=== PATIENT | male | born 1950 | race Caucasian/White ===

== ENCOUNTER 2022-02-11 10:00 | Inpatient (IN) ==
--- NOTE | 2022-01-16 16:16 | PAT Medication Instructions ---
Medication Instructions Date of Service January 16, 2022 Home Medications albuterol sulfate 90 mcg/actuation aerosol inhaler (ProAir HFA) 1 inh INHALATION QID PRN amlodipine 10 mg-benazepril 20 mg capsule (Lotrel) 1 cap PO QAM dutasteride 0.5 mg capsule (Avodart) 0.5 mg PO QAM hydrochlorothiazide 25 mg tablet 25 mg PO QAM loratadine 10 mg tablet 10 mg PO QAM omeprazole 40 mg capsule,delayed release 40 mg PO QAM rosuvastatin 40 mg tablet 40 mg PO QAM DO NOT take the morning of surgery hydrochlorothiazide 25 mg tablet 25 mg PO QAM loratadine 10 mg tablet 10 mg PO QAM Take morning of surgery With a small sip of water, OTHERWISE NOTHING TO EAT OR DRINK AFTER MIDNIGHT: albuterol sulfate 90 mcg/actuation aerosol inhaler (ProAir HFA) 1 inh INHALATION QID PRN (use if needed; please bring rescue inhaler with you to hospital day of surgery if possible) amlodipine 10 mg-benazepril 20 mg capsule (Lotrel) 1 cap PO QAM dutasteride 0.5 mg capsule (Avodart) 0.5 mg PO QAM omeprazole 40 mg capsule,delayed release 40 mg PO QAM rosuvastatin 40 mg tablet 40 mg PO QAM Take evening before surgery albuterol sulfate 90 mcg/actuation aerosol inhaler (ProAir HFA) 1 inh INHALATION QID PRN (if needed) Other Notes If you have any questions please call us at [phone] or [phone] or [phone] or [phone]
--- NOTE | 2022-01-21 13:32 | Anesthesiology Consultation ---
Date of Service January 21, 2022 Assessment & Plan (1) Encounter for pre-operative examination: - COVID screening: Per assessment on 01/21: Patient vaccinated. Travel screen negative, no known COVID-19 positive contacts or current COVID-19 related sympt oms. Surgeon arranging preop COVID testing. Awaiting results. - Vascular office visit (01/15/22): "RLE PAD with bilateral multifactorial claudication. No rest pain or ulcerations. 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 Lumbar spine disease per MRI, being managed by Dr. Whelan at [facility]... The patient was counseled regarding the pathophysiology and natural history of peripheral vascular disease, as well as the interventional and noninterventional therapeutic options. NIKHIL today demonstrating stable moderate RLE PAD. Clinic presentation suggesting predominate neurogenic component of symptoms. Recommend medical management and routine surveillance.. No contraindication to proceed with back surgery from a Vascular Surgery prospective. 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 Medication instructions provided according to the PAT guidelines. History Surgery Operation Date: 02/11/22 10:45 Proposed Procedures p L2-S1 Decompression Fusion, Spinal Cord Monitoring - Allen Whelan DO Height/Weight Height: 5 ft 11 in Weight: 96.4 kg Allergies Allergy/AdvReac Type Severity Reaction Status Date / Time oxycodone AdvReac Intermediate Vomiting Verified 01/16/22 10:52 Medications Home Medications Medication Instructions Recorded Confirmed Last Taken albuterol sulfate 90 mcg/actuation 1 inh INHALATION QID PRN 01/16/22 01/16/22 Unknown aerosol inhaler (ProAir HFA) amlodipine 10 mg-benazepril 20 mg 1 cap PO QAM 01/16/22 01/16/22 Unknown capsule (Lotrel) dutasteride 0.5 mg capsule 0.5 mg PO QAM 01/16/22 01/16/22 Unknown (Avodart) hydrochlorothiazide 25 mg tablet 25 mg PO QAM 01/16/22 01/16/22 Unknown loratadine 10 mg tablet 10 mg PO QAM 01/16/22 01/16/22 Unknown omeprazole 40 mg capsule,delayed 40 mg PO QAM 01/16/22 01/16/22 Unknown release rosuvastatin 40 mg tablet 40 mg PO QAM 01/16/22 01/16/22 Unknown Past Medical History Medical History BPH (benign prostatic hyperplasia) Cancer of right cornea Remote hx "many years ago" > treated with chemotherapy Carotid artery stenosis <50% in 2018 imaging per vascular office visit note Chronic back pain Chronic obstructive pulmonary disease stable Degenerative disc disease GERD (gastroesophageal reflux disease) controlled Hyperlipidemia Hypertension Osteoarthritis Peripheral artery disease Following with [facility] vascular Exercise / Class Metabolic Activity III < 4 Walking/Shop/Light housework (one FS (no CP, + SOB)) Past Family History Family History Other No family history of adverse response to anesthesia Past Surgical History Surgical History H/O arthroscopy of shoulder right H/O eye surgery right eye r/t cornea cancer History of cataract surgery bilateral History of cholecystectomy History of colonoscopy History of cystoscopy Past Anesthesia History No Family Hx of Anesthesia Complications and Other (Patient states he had to have preop nebulizer treatment prior to cholecystectomy, no similar need for other surgeries) History of PONV No Hx of PONV and No Hx of Motion Sickness Social History Smoking Status: Former smoker tobacco type: cigarettes Do You Dip or Chew Tobacco: No Smoking End Date: Quit 16 years ago Hx Alcohol Use: Yes Alcohol type: beer and wine alcohol intake frequency: 3 or more drinks per day (5-6 glasses wine/day (typically 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 Physical Exam Vital Signs VITALS BP 175/67 P 88 TEMP 98.4 SP02 97%RA RESP 18 PHYSICAL Full cervical extension range of motion. Full TMJ range of motion. TMD 3 finger breaths Mallampati Score 3 Dentition: intact, upper front caps Lungs: clear throughout to auscultation Cardiac: regular rate and rhythm, no murmurs noted Spine: normal Carotid arteries: negative bruit Extremities: no edema Lab Results Anesthesia Preop Results Results Anesthesia Widget: WBC 10.27 K/uL (4.8-10.8) 01/21/22 Hgb 14.6 g/dL (14.0-18.0) 01/21/22 Hct 41.9 % (42-52) L 01/21/22 Plt 195 K/uL (130-400) 01/21/22 Na 141 mmol/L (136-145) 01/21/22 K 3.6 mmol/L (3.5-5.1) 01/21/22 Cl 103 mmol/L (98-107) 01/21/22 CO2 30 mmol/L (21-32) 01/21/22 BUN 14 mg/dl (6-23) 01/21/22 Creat 0.88 mg/dl (0.6-1.4) 01/21/22 Glucose Level 127 mg/dl (70-99(Fasting)) H 01/21/22 PT 10.9 Seconds (9.0-12.0) 01/21/22 PTT 23.9 Seconds (21.0-31.0) 01/21/22 INR 1.0 (0.9-1.1) 01/21/22 Urine Color Yellow 01/21/22 Urine Appearance Clear (Clear) 01/21/22 Urine pH 5.5 (4.5-7.5) 01/21/22 Urine Specific Rayle 1.018 (1.000-1.030) 01/21/22 Urine Protein Negative (Negative) 01/21/22 Urine Glucose (UA) Negative (Negative) 01/21/22 Urine Ketones Negative (Negative) 01/21/22 Urine Blood Negative (Negative) 01/21/22 Urine Nitrite Negative (Negative) 01/21/22 Urine Bilirubin Negative (Negative) 01/21/22 Urine Urobilinogen Negative (Negative) 01/21/22 Urine Leukocyte Esterase Negative (Negative) 01/21/22 Blood Type AB Positive 01/21/22 Antibody Screen NEGATIVE 01/21/22 Testing Electrocardiogram Date: 01/21/22 NSR at 90bpm. LAD. NS IVCD. Compared to 12/3/10, questionable change in QRS duration per warp spooler review/comparison. Chest X-Ray Date: 01/21/22 Findings: + NAD Other Testing CTA Abd Aorta/fem runoff (09/09/21): Diffusely diseased aorta without aneurysm, dissection or flow-limiting stenosis. Right side: Calcified lesion at the very distal external iliac artery contributes to short-segment stenosis, approximately 50%. Calcified disease continues into the common femoral artery where [place] reef like calcification results in near total occlusion. Profunda is patent. SFA is patent. Calcified lesion contributes to short-segment stenosis of approximately 50% in the mid P2 segment and the distal P3 segment. No popliteal aneurysm. Scattered atherosclerotic disease throughout the tibials which are grossly patent. Left side: Bulky calcified lesion in the proximal common iliac artery contributes to short-segment stenosis, approximately 40-50%. Calcified lesion in the common femoral artery contributes to short-segment stenosis, approximately 60%. Profunda is patent. No significant fem-pop disease. No popliteal aneurysm. Scattered calcified disease throughout the tibials which are grossly patent.
[~2022-02-11 10:00] MED LIST: LR 15ML/HR IV SCH; ceFAZolin 2000MG 2,000 MG/15 ML SYR IV SCH
[2022-02-11] MEDS: ACETAMINOPHEN 500 MG TAB PO SCH (10:56)
[2022-02-11] MEDS: GABAPENTIN 300 MG CAP PO SCH (10:56)
[2022-02-11] MEDS: CeleBREX 200 MG CAP PO SCH (10:56)
[2022-02-11] MEDS ORDERED: ONDANSETRON INJ 2 MG/ML 2 ML VIAL IV PRN ×2 (13:25→20:08)
[2022-02-11] MEDS ORDERED: ePHEDrine sulfate 50 MG/ML AMP IV PRN (13:25)
[2022-02-11] MEDS ORDERED: ATROPINE SULFATE 0.1 MG/ML 10ML SYR IV PRN (13:25)
[2022-02-11] MEDS ORDERED: ONDANSETRON INJ 2 MG/ML 2 ML VIAL ONE (13:45)
[2022-02-11] MEDS ORDERED: PROPOFOL IV EMULSION 10 MG/ML 20 ML VIAL IV ONE ×2 (13:45→17:05)
[2022-02-11] MEDS ORDERED: LIDOCAINE 2% 2 ML VIAL/AMP(20MG/ML) INFIL ONE (13:45)
[2022-02-11] MEDS ORDERED: ROCURONIUM BROMIDE 10 MG/ML 5 ML VIAL IV ONE (13:45)
[2022-02-11] MEDS ORDERED: DEXAMETHASONE SOD INJ 4 MG/ML VIAL ONE (13:45)
[2022-02-11] MEDS ORDERED: fentaNYL citrate 100 MCG/2 ML VIAL ONE ×2 (13:49→17:18)
[2022-02-11] MEDS ORDERED: GLYCOPYRROLATE 0.2 MG/ML VIAL ONE ×2 (13:50→17:27)
--- NOTE | 2022-02-11 14:16 | History & Physical Bridge Note ---
Date of Service February 11, 2022 History & Physical Bridge Note I have examined the patient, reviewed the History & Physical and in the interval since the performance of the History & Physical I have noted the following changes of clinical significance: no changes noted
--- NOTE | 2022-02-11 14:17 | History & Physical Report ---
Date of Service February 11, 2022 Assessment & Plan (1) Neurogenic claudication due to lumbar spinal stenosis: Plan: L2-S1 decompression fusion History of Present Illness Chief Complaint: Back and leg pain Primary Care Provider: Andrei Petersen This is a 71-year-old male presents with chronic persistent back and leg pain. Failing since course of nonoperative care is here for surgical invention. Allergies Allergy/AdvReac Type Severity Reaction Status Date / Time oxycodone AdvReac Intermediate Vomiting Verified 02/11/22 10:34 Home Medications Medication Instructions Recorded Confirmed Type albuterol sulfate 90 mcg/actuation 1 inh INHALATION QID PRN 01/16/22 02/11/22 History aerosol inhaler (ProAir HFA) amlodipine 10 mg-benazepril 20 mg 1 cap PO QAM 01/16/22 02/11/22 History capsule (Lotrel) dutasteride 0.5 mg capsule 0.5 mg PO QAM 01/16/22 02/11/22 History (Avodart) hydrochlorothiazide 25 mg tablet 25 mg PO QAM 01/16/22 02/11/22 History loratadine 10 mg tablet 10 mg PO QAM 01/16/22 02/11/22 History omeprazole 40 mg capsule,delayed 40 mg PO QAM 01/16/22 02/11/22 History release rosuvastatin 40 mg tablet 40 mg PO QAM 01/16/22 02/11/22 History Past Med/Surg History Medical History BPH (benign prostatic hyperplasia) Cancer of right cornea Remote hx "many years ago" > treated with chemotherapy Carotid artery stenosis <50% in 2018 imaging per vascular office visit note Chronic back pain Chronic obstructive pulmonary disease stable Degenerative disc disease GERD (gastroesophageal reflux disease) controlled Hyperlipidemia Hypertension Osteoarthritis Peripheral artery disease Following with [facility] vascular Surgical History H/O arthroscopy of shoulder right H/O eye surgery right eye r/t cornea cancer History of cataract surgery bilateral History of cholecystectomy History of colonoscopy History of cystoscopy Family History Other No family history of adverse response to anesthesia Social History Smoking Status: Former smoker Smoking End Date: Quit 16 years ago; Second Hand Exposure: No; Do You Dip or Chew Tobacco: No; Tobacco Cessation Education Requested by Patient: No Hx Alcohol Use: Yes Alcohol type: beer and wine Hx Substance Use: No Preferred Language: Israeli Communication Ability: Effective Jr. Systems Administrator Required: No Beliefs That Will Affect Care: None Current Living Situation: Spouse Other Information That Helps Us Care for You: No Feels Safe at Home: Yes Safety Concerns: Feels Safe At This Time Assistive Devices: Glasses Physical Exam Physical Exam: Patient is alert and oriented Heart regular rate and rhythm Lungs clear Results & Data ([facility]) Vital Signs (Past 12 Hours) Vital Signs Temp Pulse Resp BP Pulse Ox 02/11/22 10:37 37.3 C 89 18 154/81 H 97
[2022-02-11] MEDS ORDERED: ceFAZolin 330 MG/ML 1 GM VIAL ONE (14:33)
[2022-02-11] MEDS ORDERED: BUPIVACAINE/EPINEPHRINE 0.25% 1:200,000 30 ML VIAL ONE (14:33)
[2022-02-11] MEDS ORDERED: REMIFENTANIL HCL 1 MG VIAL ONE (14:41)
[2022-02-11] MEDS ORDERED: FLOSEAL HEMOSTATIC MATRIX 10ML TOP ONE (15:58)
[2022-02-11] MEDS ORDERED: NEOSTIGMINE METHYLSULFATE 1 MG/ML 10ML VIAL ONE (17:27)
--- NOTE | 2022-02-11 17:55 | Operative Report ---
Post Operative Report Pre & Post Diagnosis Operation Date: 02/11/22 11:35 Pre-Op Diagnosis: Neurogenic claudication due to spinal stenosis Post-Op Diagnosis: Neurogenic claudication due to spinal stenosis I identified the patient and participated in the time-out.: Yes Procedure Operation Date: 02/11/22 11:35 Actual Procedures #1 lumbar decompression with bilateral medial facetectomies and foraminotomies L2-L3, L3-L4, L4-5 and L5-S1. #2 posterior spinal fusion L2-S1. #3 placement posterior segmental instrumentation L2-S1. #4 interbody fusion L4-L5 L5-S1. #5 placement of Spira cage 13 x 26 mm at L4-L5 and 11 x 26 mm at L5-S1. #6 placement locally harvested morselized autograft in the posterior gutters. #7 placement of infuse collagen sponge, master graft in the posterior lateral gutters and I factor interbody space. Surgeon Allen Whelan, Refrigerated Company Driver Christen Frias Estimated Blood Loss 400 Findings Consistent with Post-Op Diagnosis Specimens None Indications This is a 71-year-old male presents with above-mentioned diagnosis after failing since course of nonoperative care is here for surgical invention. Description of Procedure Patient was met with identified informed consent obtained. Patient was then taken to the operative suite underwent a patient placed in a prone position the Othello table top Reggie frame. All bony prominences well-padded eyes inspected to ensure no external pressure placed upon the. This point lumbar spine was prepped and draped no sterile fashion. Sharp dissection with the assistance of Bovie cautery was performed down to and exposing the lamina and transverse processes of L2 L3-L4-L5 and sacral ala bilaterally. From a caudal cephalad fashion complete laminectomy L5 L4 L3 L2 was performed including bilateral medial facetectomies and foraminotomies addressing severe spinal stenosis. Pedicle screws were then placed in L2 L3-L4-L5 and S1 levels bilaterally with assistance of fluoroscopy and proper sized joanna placed. By way of entrance foraminal approach on the right complete discectomy of L5-S1 was performed endplates curetted to subcortical bleeding bone and a 11 x 26 mm spiral cage filled with I factor tapped in position. Then proceeded to L4-L5 and again by way the transforaminal approach on the right pleat discectomy performed endplates curetted to subcortical any bone and a 13 x 26 mm spiral cage filled I factor tapped in position. The rods were then locked into final position bilaterally. The transverse processes of L2-L3 L4-5 and sacral ala burred to subcortically bone. Infuse collagen sponge master graft and local autograft was placed in the posterior gutters. 15 round GRACE drain inserted. The incision was then closed with 1 Vicryl the fascia 2-0 Vicryl subcutaneously and 4 Monocryl for final skin closure. Steri-Strip sterile dressings placed. Patient progressed to PACU stable condition. Please note spinal cord monitoring was utilized at the procedure no changes noted. Lastly Christen Frias was present out the entire surgery involved the patient positioning complex portions of the surg heath and final skin closure. I attest to the content of the Intraoperative Record and any orders documented therein. Any exceptions are noted below.
--- NOTE | 2022-02-11 18:04 | Fluoroscopy Report ---
FL lumbar spine 2-3V CLINICAL HISTORY: L2-S1 DF TECHNIQUE: 4 views were obtained with the C-arm in the OR with the above procedure. Total fluoroscopy time was 27.2 seconds. Total skin dose was 28.4 mGy. Comparison: None available at the time of this dictation. FINDINGS/IMPRESSION: Intraoperative images were obtained of L2-S1 discectomy and fusion. Please correlate with intraoperative fluoroscopy and operative report. ACT 112: Negative or not required by law. Electronically signed by: Silvestre Cornejo M.D. 02/11/2022 6:03 PM
[2022-02-11] MEDS: fentaNYL citrate 100 MCG/2 ML VIAL IV PRN ×4 (18:30→18:58)
[2022-02-11] MEDS: HYDROmorphone INJ 2 MG/ML SYR/VIAL IV PRN ×4 (19:11→19:32)
--- NOTE | 2022-02-11 19:14 | Anesthesiology Progress Note ---
Date of Service February 11, 2022 Anesthesia Post Procedure Vital Signs Vital Signs: Temp Pulse Pulse Resp BP Pulse Ox 02/11/22 19:05 58 L 11 L 147/66 H 95 02/11/22 18:55 57 L 14 136/65 94 02/11/22 18:45 64 16 147/70 H 96 02/11/22 18:35 61 18 137/68 93 02/11/22 18:25 54 L 14 131/96 98 02/11/22 18:15 36 C L 59 L 17 105/63 98 02/11/22 10:37 37.3 C 89 18 154/81 H 97 Pain Intensity Back: Pain Intensity: 7 Transfer of Care Handoff Completed per policy Notes Mental Status: alert / awake / arousable and participated in evaluation Patient Amnestic to Procedure: Yes Nausea / Vomiting: adequately controlled Pain: adequately controlled Airway Patency, RR, SpO2: stable & adequate BP & HR: stable & adequate Hydration State: stable & adequate Anesthetic Complications: no major complications apparent and Pt Satisfied with anesthetic care
[2022-02-11] MEDS ORDERED: SOD PHOSPHATE/SOD BIPHOSPHATE ENEMA 132 ML BTL PR PRN (20:08)
[2022-02-11] MEDS ORDERED: NALOXONE HCL 0.4 MG/1 ML VIAL/CARP IV PRN (20:08)
[2022-02-11] MEDS ORDERED: LORazepam 2 MG/1 ML VIAL IV PRN (20:08)
[2022-02-11] MEDS ORDERED: DO NOT ADMINISTER PNEUMOCOCCAL VACCINE PRN (20:08)
[2022-02-11] MEDS ORDERED: ACETAMINOPHEN 500 MG TAB PO PRN (20:08)
[2022-02-11] MEDS ORDERED: DO NOT ADMINISTER FLU VACCINE PRN (20:08)
[2022-02-11] MEDS ORDERED: ACETAMINOPHEN 1,000 MG/100 ML VIAL IV PRN (20:08)
[2022-02-11] MEDS ORDERED: hydrOXYzine HCl 25 MG TAB PO PRN (20:08)
[2022-02-11] MEDS ORDERED: diphenhydrAMINE Capsule 25 MG CAP PO PRN (20:08)
[2022-02-11] MEDS ORDERED: HYDROmorphone INJ 0.5 MG/0.5 ML SYR IV PRN (20:08)
[2022-02-11] MEDS ORDERED: METOCLOPRAMIDE HCL INJ 5 MG/ML 2 ML VIAL IV PRN (20:08)
[2022-02-11] MEDS ORDERED: LORazepam 0.5 MG TAB PO PRN (20:08)
[2022-02-11] MEDS ORDERED: FAMOTIDINE 20 MG TAB PO PRN (20:08)
[2022-02-11] MEDS ORDERED: bisacodyL 10 MG SUPP PR PRN (20:08)
[2022-02-11] MEDS ORDERED: ALUMINUM/MAGNESIUM SUSP 30 ML UDC PO PRN (20:08)
[2022-02-11] MEDS ORDERED: MAGNESIUM HYDROXIDE SUSP 30 ML UDC PO PRN (20:08)
[2022-02-11] MEDS ORDERED: HYDROmorphone INJ 1 MG/ML SYRINGE IV PRN (20:08)
[2022-02-11] MEDS ORDERED: PROMETHAZINE HCL 12.5 MG in SODIUM CHLORIDE 0.9% 50 ML IV PRN (20:08)
[2022-02-11] MEDS ORDERED: ALBUTEROL HFA 8 GM INHALER INH PRN (20:55)
--- NOTE | 2022-02-11 21:24 | Hospitalist Consultation ---
Date of Consultation February 11, 2022 Assessment & Plan (1) Neurogenic claudication due to lumbar spinal stenosis: Final Assessment and Recommendations as follows : LSS status post surgery Clinically well COPD, not in acute exacerbation, transient postop hypoxemia secondary to s edation Rule out fluid overload hypertension, BP on the lower side hyperlipidemia, on statin Rx hx PVD, patient follows with [facility] vascular surgeon Hyperglycemia on preop labs December 2021 likely secondary to prediabetes, outpatient hemoglobin A1c of 5.9 from January 2021 past tobacco/alcohol abuse Continue amlodipine, hold enalapril and HCTZ for now given borderline BP Resume if BP improved and a.m. chemistries within normal limits Hemoglobin A1c with a.m. blood work DVT prophylaxis. SCDs as per postop orders Thank you very much for this consultation. Dr. Covarrubias will follow patient's progress. Text document was generated using [employer] voice recognition software. It may contain grammatical or spelling errors. Kindly contact undersigned for clarification of any documentation item in question. History of Present Illness Reason for Consultation: Medical management Requesting Physician: Dr. Whelan Attending Physician: Allen Whelan DO History of Present Illness PCP : Dr. Andrei Petersen History obtained from patient and records. Medical history significant for COPD, hypertension, hyperlipidemia, PVD, past tobacco/alcohol abuse. Patient underwent elective lumbar decompression surgery today for L SS. Currently pain is tolerable. O2 sats transiently in the 70s postop during sleep as per RN. Patient denies chest pain, SOB, cough symptoms. Medical History as above Surgical History : Shoulder surgery, cholecystectomy, cystoscopy, right hamstring repair Family History : Heart disease Personal/Social history : Past tobacco/alcohol abuse, daily alcohol intake although patient denies abuse currently, retired heavy machinery equipment technician Allergies Allergy/AdvReac Type Severity Reaction Status Date / Time oxycodone AdvReac Intermediate Vomiting Verified 02/11/22 10:34 Home Medications Medication Instructions Recorded Confirmed Type albuterol sulfate 90 mcg/actuation 1 inh INHALATION QID PRN 01/16/22 02/11/22 History aerosol inhaler (ProAir HFA) amlodipine 10 mg-benazepril 20 mg 1 cap PO QAM 01/16/22 02/11/22 History capsule (Lotrel) dutasteride 0.5 mg capsule 0.5 mg PO QAM 01/16/22 02/11/22 History (Avodart) hydrochlorothiazide 25 mg tablet 25 mg PO QAM 01/16/22 02/11/22 History loratadine 10 mg tablet 10 mg PO QAM 01/16/22 02/11/22 History omeprazole 40 mg capsule,delayed 40 mg PO QAM 01/16/22 02/11/22 History release rosuvastatin 40 mg tablet 40 mg PO QAM 01/16/22 02/11/22 History Patient History Medical History BPH (benign prostatic hyperplasia) Cancer of right cornea Remote hx "many years ago" > treated with chemotherapy Carotid artery stenosis <50% in 2018 imaging per vascular office visit note Chronic back pain Chronic obstructive pulmonary disease stable Degenerative disc disease GERD (gastroesophageal reflux disease) controlled Hyperlipidemia Hypertension Osteoarthritis Peripheral artery disease Following with [facility] vascular Surgical History H/O arthroscopy of shoulder right H/O eye surgery right eye r/t cornea cancer History of cataract surgery bilateral History of cholecystectomy History of colonoscopy History of cystoscopy Family History Other No family history of adverse response to anesthesia Social History Smoking Status: Former smoker Smoking End Date: Quit 16 years ago; Second Hand Exposure: No; Do You Dip or Chew Tobacco: No; Tobacco Cessation Education Requested by Patient: No Hx Alcohol Use: Yes Alcohol type: beer and wine Hx Substance Use: No Preferred Language: Hungarian Communication Ability: Effective Records Analyst Required: No Beliefs That Will Affect Care: None Current Living Situation: Spouse Other Information That Helps Us Care for You: No Feels Safe at Home: Yes Safety Concerns: Feels Safe At This Time Assistive Devices: Glasses Review of Systems Review of Systems: As per HPI, all other systems reviewed and negative Physical Exam Physical Exam: GENERAL: Comfortable, pleasant, no respiratory distress SKIN: Normal color, warm HEENT: [place] palpebral conjunctivae, no ptosis, dry buccal mucosa, nasal cannula in place NECK : Supple, no tenderness CHEST : Decreased breath sounds, no tenderness HEART : RRR, no obvious murmurs ABDOMEN: Some distention, nontender EXTREMITIES : Minimal LE swelling, no LE tenderness, no other conspicuous deformities noted NEUROLOGIC : Coherent, no facial asymmetry, gait and stance not assessed Results & Data Results & Data ([facility]) Vital Signs (Past 12 Hours) Vital Signs Temp Pulse Pulse Resp BP Pulse Ox 02/11/22 20:52 36.6 C 77 18 106/61 92 02/11/22 20:20 36.6 C 75 18 124/63 92 02/11/22 19:35 56 L 9 L 134/60 95 02/11/22 19:25 36.2 C L 68 17 135/62 93 02/11/22 19:15 65 16 139/63 92 02/11/22 19:05 58 L 11 L 147/66 H 95 02/11/22 18:55 57 L 14 136/65 94 02/11/22 18:45 64 16 147/70 H 96 02/11/22 18:35 61 18 137/68 93 02/11/22 18:25 54 L 14 131/96 98 02/11/22 18:15 36 C L 59 L 17 105/63 98 02/11/22 10:37 37.3 C 89 18 154/81 H 97 Laboratory Results Lab Results 02/11/22 02/11/22 Range/Units 10:28 Unknown SARS-CoV-2, RNA, NAAT NEGATIVE (NEGATIVE) Blood Type AB Positive Antibody Screen NEGATIVE Crossmatch See Detail Laboratory Results SARS-CoV-2, RNA, NAAT NEGATIVE (NEGATIVE) 02/11/22 Unknown Blood Type AB Positive 02/11/22 10:28 Antibody Screen NEGATIVE 02/11/22 10:28 Crossmatch See Detail 02/11/22 10:28 Impressions Lumbar Spine X-Ray 02/11/22 11:35 FL lumbar spine 2-3V CLINICAL HISTORY: L2-S1 DF TECHNIQUE: 4 views were obtained with the C-arm in the OR with the above procedure. Total fluoroscopy time was 27.2 seconds. Total skin dose was 28.4 mGy. Comparison: None available at the time of this dictation. FINDINGS/IMPRESSION: Intraoperative images were obtained of L2-S1 discectomy and fusion. Please correlate with intraoperative fluoroscopy and operative report. ACT 112: Negative or not required by law. Electronically signed by: Silvestre Cornejo M.D. 02/11/2022 6:03 PM Diagnostic Findings CXR as per my interpretation cardiomegaly, no congestion/infiltrate
[2022-02-11] MEDS: HYDROCODONE/ACETAMOPHEN 5/325MG TAB PO PRN (22:07)
[2022-02-11] MEDS: DOCUSATE SODIUM/SENNA 50/8.6MG TAB PO SCH (22:32)
[2022-02-11] MEDS: LACTATED RINGER'S 1,000 ML IV SCH (22:38)
[2022-02-12] MEDS: ceFAZolin 2000MG 2,000 MG/15 ML SYR IV SCH ×2 (00:08→08:53)
[2022-02-12] MEDS: HYDROCODONE/ACETAMOPHEN 5/325MG TAB PO PRN ×2 (04:19→09:17)
[2022-02-12] MEDS: POLYETHYLENE (MIRALAX) 17 GM PACK PO SCH ×4 (06:19→22:36)
[2022-02-12] MEDS: LACTATED RINGER'S 1,000 ML IV SCH (06:20)
[2022-02-12] MEDS: ACETAMINOPHEN 500 MG TAB PO SCH (06:35)
[2022-02-12] MEDS: GABAPENTIN 300 MG CAP PO SCH (06:36)
[2022-02-12] MEDS: CeleBREX 200 MG CAP PO SCH (06:36)
--- NOTE | 2022-02-12 08:25 | XRay Report ---
XR chest 1V portable CLINICAL HISTORY: transient hypoxemia COMPARISON STUDY: Chest radiograph January 21, 2022. FINDINGS: Lung volumes are normal. Lungs are clear. There is no pneumothorax or pleural effusion. Car diac size is at the upper limits of normal. Mediastinal contours are normal. There is no evidence for pulmonary edema. IMPRESSION: No acute cardiopulmonary findings. ACT 112: Negative or not required by law. Electronically signed by: Freeman De La Garza M.D. 02/12/2022 8:23 AM
[2022-02-12 08:42] LABS: Hematocrit (blood only) 32.2 % (42-52); Hemoglobin 10.6 g/dL (14.0-18.0); Immature Granulocytes # (auto) 0.01 K/uL (0.00-0.02); Immature Granulocytes % (auto) 0.1 %; Lymphocytes # (auto) 0.86 K/uL (1.2-3.4); Lymphocytes % (auto) 6.9 %; Mean Corpuscular Hemoglobin 31.1 pg (25-34); Mean Corpuscular Hgb Conc 32.9 g/dL (32-36); Mean Corpuscular Volume 94.4 fL (80-100); Mean Platelet Volume 11.5 fL (7.4-10.4); Monocytes # (auto) 0.89 K/uL (0.11-0.59); Monocytes % (auto) 7.2 %; Neutrophils # (auto) 10.68 K/uL (1.4-6.5); Neutrophils % (auto) 85.8 %; Platelet Count 161 K/uL (130-400); RDW Coefficient of Variation 14.5 % (11.5-14.5); RDW Standard Deviation 49.6 fL (36.4-46.3); Red Blood Count 3.41 M/uL (4.7-6.1); White Blood Count 12.44 K/uL (4.8-10.8)
[2022-02-12] MEDS: LORATADINE 10 MG TAB PO SCH (08:54)
[2022-02-12] MEDS: PANTOprazole 40 MG TAB PO SCH (08:54)
[2022-02-12] MEDS: amLODIPine BESYLATE 5 MG TAB PO SCH (08:55)
[2022-02-12] MEDS: ROSUVASTATIN CALCIUM 20 MG TAB PO SCH (08:55)
[2022-02-12] MEDS: dexAMETHasone 6 MG in SYRINGE 0 ML IV SCH (08:56)
[2022-02-12] MEDS ORDERED: ENALAPRIL MALEATE 10 MG TAB PO SCH (09:00)
[2022-02-12] MEDS ORDERED: hydroCHLOROthiazide 25 MG TAB PO SCH (09:00)
--- NOTE | 2022-02-12 09:00 | Orthopedic Progress Note ---
Date of Service February 12, 2022 Assessment & Plan (1) Neurogenic claudication due to lumbar spinal stenosis: Plan: Patient will start physical therapy today. DC Jiménez after physical therapy. DVT prophylaxis is in the form of teds and SCDs. Maintain GRACE drain. Continue with pain control. Admission and Anticipated Discharge Date Admission Date: February 11, 2022 Subjective Patient is postoperative day 1 L2-S1 decompression instrumented fusion. He had an an uneventful evening. No complaints. Lower extremity symptoms greatly improved. H&H is morning are 10.6 and 32.2 respectively. GRACE drain output last shift is 400 cc. Review of Systems Review of Systems: All systems reviewed & are unremarkable except as noted in HPI & below Physical Exam Physical Exam: Patient sitting up and eating breakfast No acute distress Alert and oriented x3 Strength is intact bilateral lower extremities Calves are soft nontender bilaterally Results & Data ([facility]) Vital Signs (Past 12 Hours) Vital Signs Temp Pulse Resp BP Pulse Ox 02/12/22 08:52 84 122/67 94 02/12/22 07:37 36.8 C 85 16 116/62 96 02/12/22 04:08 36.7 C 81 18 139/78 97 02/11/22 22:50 36.6 C 78 18 110/68 97 02/11/22 21:57 36.9 C 78 17 118/66 94
[2022-02-12 09:03] LABS: BUN Creatinine Ratio 15.4 (10-20); Calcium 7.9 mg/dl (8.5-10.1); Creatinine Clr Calc Pharmacy 84.9 ml/min; Est GFR (African American) 96.6 ml/min; Est GFR (Non-African American) 83.3 ml/min; Potassium 4.1 mmol/L (3.5-5.1)
[2022-02-12] MEDS: ONDANSETRON 4 MG OD TAB PO PRN (09:56)
[2022-02-12 10:12] LABS: Estimated Average Glucose 117 mg/dl; Hemoglobin A1C 5.7 % (4.5-5.6)
[2022-02-12] MEDS: traMADol HCL 50 MG TABLET PO PRN ×2 (18:36→23:18)
[2022-02-12] MEDS: DOCUSATE SODIUM/SENNA 50/8.6MG TAB PO SCH (20:19)
--- NOTE | 2022-02-12 23:57 | Hospitalist Progress Note ---
Date of Service February 12, 2022 Assessment & Plan (1) Neurogenic claudication due to lumbar spinal stenosis: Plan: #1 lumbar decompression with bilateral medial facetectomies and foraminotomies L2-L3, L3-L4, L4-5 and L5-S1. #2 posterior spinal fusion L2-S1. #3 placement posterior segmental instrumentation L2-S1. #4 interbody fusion L4-L5 L5-S1. #5 placement of Spira cage 13 x 26 mm at L4-L5 and 11 x 26 mm at L5-S1. #6 placement locally harvested morselized autograft in the posterior gutters. #7 placement of infuse collagen sponge, master graft in the posterior lateral gutters and I factor interbody space performed by Dr. Whelan No post op complication Continue pain control Incentive spirometry Continue PT/OT eval Fall precaution Will monitor H/H Acute blood loss anemia Hgb 10.6 today, preop Hgb 14.6 Mostly due to recent ortho procedure Continue monitor H/H HTN HCTZ and Benazapril on hold Continue amlodipine LSS status post surgery Clinically well Hx PVD Stable Follow up with outpatient vascular surgeon DVT px as per ortho Code status Full code Admission and Anticipated Discharge Date Admission Date: February 11, 2022 Subjective Pt was seen and examined for postop follow up Sitting in chair with no acute distress Pt said that pain is tolerable He walked around with therapy Denies any chest pain, palpitation, dizziness and SOB Review of Systems Review of Systems: All systems reviewed & are unremarkable except as noted in Subjective Physical Exam Physical Exam: General- No acute distress Head- atraumatic Eyes- PERRL, EOMI, ENT- oropharynx clear Neck- supple, no JVD Lungs- clear to auscultation Heart- regular rhythm; no murmur Abdomen- normal bowel sounds, soft, nontender Extremities- no calf tenderness Neuro- alert, oriented x 3; PERRL, EOMI; no facial palsy; no dysarthria Skin- warm & dry Results & Data Results & Data ([facility]) Vital Signs (Past 12 Hours) Vital Signs Temp Pulse Resp BP Pulse Ox 02/12/22 15:14 36.8 C 83 16 123/70 96
[2022-02-13] MEDS: POLYETHYLENE (MIRALAX) 17 GM PACK PO SCH ×5 (06:11→23:48)
[2022-02-13] MEDS: traMADol HCL 50 MG TABLET PO PRN ×2 (06:14→23:53)
[2022-02-13] MEDS: dexAMETHasone 6 MG in SYRINGE 0 ML IV SCH (09:34)
[2022-02-13] MEDS: LORATADINE 10 MG TAB PO SCH (09:35)
[2022-02-13] MEDS: PANTOprazole 40 MG TAB PO SCH (09:35)
[2022-02-13] MEDS: DUTASTERIDE 0.5 MG CAPSULE PO SCH (09:35)
[2022-02-13] MEDS: ROSUVASTATIN CALCIUM 20 MG TAB PO SCH (09:36)
[2022-02-13] MEDS: amLODIPine BESYLATE 5 MG TAB PO SCH (09:38)
[2022-02-13 10:43] LABS: Hematocrit (blood only) 29.4 % (42-52); Hemoglobin 9.7 g/dL (14.0-18.0); Mean Corpuscular Hemoglobin 31.2 pg (25-34); Mean Corpuscular Volume 94.5 fL (80-100); Mean Platelet Volume 11.3 fL (7.4-10.4); Platelet Count 121 K/uL (130-400); RDW Coefficient of Variation 14.6 % (11.5-14.5); RDW Standard Deviation 50.3 fL (36.4-46.3); Red Blood Count 3.11 M/uL (4.7-6.1); White Blood Count 10.76 K/uL (4.8-10.8)
--- NOTE | 2022-02-13 12:13 | Orthopedic Progress Note ---
Date of Service February 13, 2022 Assessment & Plan (1) Neurogenic claudication due to lumbar spinal stenosis: Plan: At this time we will continue physical therapy monitor his GRACE output consider discharge home this weekend. Admission and Anticipated Discharge Date Admission Date: February 11, 2022 Subjective Patient's back pain is controlled leg symptoms improved Physical Exam Physical Exam: On exam he is comfortable he has good strength testing. Results & Data ([facility]) Vital Signs (Past 12 Hours) Vital Signs Temp Pulse Pulse Resp BP Pulse Ox 02/13/22 09:37 152/71 H 02/13/22 07:35 36.4 C L 81 20 157/80 H 02/13/22 00:19 36.6 C 79 18 135/69 96
[2022-02-13] MEDS: ONDANSETRON 4 MG OD TAB PO PRN (12:33)
[2022-02-13] MEDS: DOCUSATE SODIUM/SENNA 50/8.6MG TAB PO SCH (20:02)
--- NOTE | 2022-02-13 23:52 | Hospitalist Progress Note ---
Date of Service February 13, 2022 Assessment & Plan (1) Neurogenic claudication due to lumbar spinal stenosis: Plan: #1 lumbar decompression with bilateral medial facetectomies and foraminotomies L2-L3, L3-L4, L4-5 and L5-S1. #2 posterior spinal fusion L2-S1. #3 placement posterior segmental instrumentation L2-S1. #4 interbody fusion L4-L5 L5-S1. #5 placement of Spira cage 13 x 26 mm at L4-L5 and 11 x 26 mm at L5-S1. #6 placement locally harvested morselized autograft in the posterior gutters. #7 placement of infuse collagen sponge, master graft in the posterior lateral gutters and I factor interbody space performed by Dr. Whelan No post op complication Continue pain control Incentive spirometry Continue PT/OT eval Fall precaution Will monitor H/H Acute blood loss anemia Hgb 9.7 today, preop Hgb 14.6 Mostly due to recent ortho procedure Continue monitor H/H HTN HCTZ and Benzapril on hold Continue amlodipine Hx PVD Stable Follow up with outpatient vascular surgeon DVT px as per ortho Code status Full code Admission and Anticipated Discharge Date Admission Date: February 11, 2022 Subjective Pt was seen and examined for postop follow up Sitting in chair with no acute distress Denies any chest pain, palpitation, dizziness and SOB Review of Systems Review of Systems: All systems reviewed & are unremarkable except as noted in Subjective Physical Exam Physical Exam: General- No acute distress Head- atraumatic Eyes- PERRL, EOMI, ENT- oropharynx clear Neck- supple, no JVD Lungs- clear to auscultation Heart- regular rhythm; no murmur Abdomen- normal bowel sounds, soft, nontender Extremities- no calf tenderness Neuro- alert, oriented x 3; PERRL, EOMI; no facial palsy; no dysarthria Skin- warm & dry Results & Data Results & Data ([facility]) Vital Signs (Past 12 Hours) Vital Signs Temp Pulse Resp BP Pulse Ox 02/13/22 22:19 36.5 C 84 16 132/71 91 02/13/22 15:17 36.8 C 84 16 163/74 H 92
[2022-02-14] MEDS: POLYETHYLENE (MIRALAX) 17 GM PACK PO SCH ×3 (06:16→17:32)
--- NOTE | 2022-02-14 08:12 | Orthopedic Progress Note ---
Date of Service February 14, 2022 Assessment & Plan (1) Neurogenic claudication due to lumbar spinal stenosis: Plan: Patient is stable postop day #3. He had some nausea and vomiting yesterday likely related to his pain control. His drain is also still putting out a si gnificant amount of drainage. We will hold off on discharge this morning until his drainage calms down and he is able to tolerate a full diet. We will continue with GI DVT prophylaxis and ambulation gait training see him tomorrow morning to see if he is ready for discharge. Admission and Anticipated Discharge Date Admission Date: February 11, 2022 Subjective Patient was seen bedside in room 357. He is doing relatively well at this point. Had a bowel movement overnight and feels better. He did have a lot of nausea and threw up yesterday he does not tolerate the oxycodone. The tramadol seems to help to a degree. He has been walking with physical therapy. He denies any other numbness, tingling, paresthesias. Physical Exam Physical Exam: On exam he is lying in bed. He appears to be comfortable. His abdomen soft and nontender his calves are supple and nontender. His strength and sensation both intact. His GRACE drain is in place and is holding suction. He has had 50 cc of drainage out on this shift and 40 on the previous. His hemoglobin was 9.7 and hematocrit is 29.4 yesterday. Results & Data ([facility]) Vital Signs (Past 12 Hours) Vital Signs Temp Pulse Resp BP Pulse Ox 02/13/22 22:19 36.5 C 84 16 132/71 91
[2022-02-14] MEDS: PANTOprazole 40 MG TAB PO SCH (08:44)
[2022-02-14] MEDS: LORATADINE 10 MG TAB PO SCH (08:44)
[2022-02-14] MEDS: ROSUVASTATIN CALCIUM 20 MG TAB PO SCH (08:44)
[2022-02-14] MEDS: amLODIPine BESYLATE 5 MG TAB PO SCH (08:45)
[2022-02-14] MEDS: DUTASTERIDE 0.5 MG CAPSULE PO SCH (08:46)
[2022-02-14] MEDS: dexAMETHasone 6 MG in SYRINGE 0 ML IV SCH (08:49)
[2022-02-14] MEDS: traMADol HCL 50 MG TABLET PO PRN ×3 (09:38→21:54)
--- NOTE | 2022-02-14 17:26 | Hospitalist Progress Note ---
Date of Service February 14, 2022 Assessment & Plan (1) Neurogenic claudication due to lumbar spinal stenosis: Plan: #1 lumbar decompression with bilateral medial facetectomies and foraminotomies L2-L3, L3-L4, L4-5 and L5-S1. #2 posterior spinal fusion L2-S1. #3 placement posterior segmental instrumentation L2-S1. #4 interbody fusion L4-L5 L5-S1. #5 placement of Spira cage 13 x 26 mm at L4-L5 and 11 x 26 mm at L5-S1. #6 placement locally harvested morselized autograft in the posterior gutters. #7 placement of infuse collagen sponge, master graft in the posterior lateral gutters and I factor interbody space performed by Dr. Whelan No post op complication Continue pain control Incentive spirometry Continue PT/OT eval Fall precaution Will monitor H/H Acute blood loss anemia Hgb 9.7 today, preop Hgb 14.6 Mostly due to recent ortho procedure Continue monitor H/H HTN will resume HCTZ/Benzapril Continue amlodipine Hx PVD Stable Follow up with outpatient vascular surgeon DVT px as per ortho Code status Full code Admission and Anticipated Discharge Date Admission Date: February 11, 2022 Subjective Pt was seen and examined for postop follow up Sitting in chair with no acute distress Pt said that he walked around the hallway with therapy Denies any chest pain, palpitation, dizziness and SOB Review of Systems Review of Systems: All systems reviewed & are unremarkable except as noted in Subjective Physical Exam Physical Exam: General- No acute distress Head- atraumatic Eyes- PERRL, EOMI, ENT- oropharynx clear Neck- supple, no JVD Lungs- clear to auscultation Heart- regular rhythm; no murmur Abdomen- normal bowel sounds, soft, nontender Extremities- no calf tenderness Neuro- alert, oriented x 3; PERRL, EOMI; no facial palsy; no dysarthria Skin- warm & dry Results & Data Results & Data ([facility]) Vital Signs (Past 12 Hours) Vital Signs Temp Pulse Resp BP Pulse Ox 02/14/22 15:50 36.8 C 81 18 136/69 92 02/14/22 07:35 36.8 C 83 16 149/83 H 94
[2022-02-14] MEDS: DOCUSATE SODIUM/SENNA 50/8.6MG TAB PO SCH (21:49)
[2022-02-15] MEDS: POLYETHYLENE (MIRALAX) 17 GM PACK PO SCH ×3 (00:05→13:13)
[2022-02-15 06:28] LABS: Hematocrit (blood only) 30.5 % (42-52); Hemoglobin 10.6 g/dL (14.0-18.0); Mean Corpuscular Hemoglobin 33.2 pg (25-34); Mean Corpuscular Hgb Conc 34.8 g/dL (32-36); Mean Corpuscular Volume 95.6 fL (80-100); Mean Platelet Volume 11.5 fL (7.4-10.4); Platelet Count 181 K/uL (130-400); RDW Coefficient of Variation 14.3 % (11.5-14.5); RDW Standard Deviation 49.8 fL (36.4-46.3); Red Blood Count 3.19 M/uL (4.7-6.1); White Blood Count 11.41 K/uL (4.8-10.8)
--- NOTE | 2022-02-15 07:59 | Discharge Summary ---
Date of Service February 15, 2022 Admission HPI Per Admitting Provider This is a 71-year-old male presents with chronic persistent back and leg pain. Failing since course of nonoperative care is here for surgical invention. Discharge Data Consultations 02/11/22 20:08 Consult Hospitalist Routine Procedures Performed Operation Date: 02/11/22 11:35 Actual Procedures p L2-S1 Decompression Fusion with interbody fusion, Spinal Cord Monitoring - Allen Whelan DO Hospital Course (1) Neurogenic claudication due to lumbar spinal stenosis: Patient is a pleasant 71-year-old male who has history physical examination and radiographic images consistent with the above-mentioned diagnosis. For this reason is brought to the operating room on 02/11/2022 and undergone a lumbar decompression and fusion. He left the operating room with GRACE drain Jiménez in place and transferred to PACU in stable condition. He was then brought to the orthopedic floor. He was on GI and DVT prophylaxis. He is seen by physical therapy postop day #1 for ambulation and gait training. Throughout his hospital course his calves remained supple nontender his abdomen remained supple nontender on postop day #4 he was deemed safe for home discharge. He was to change his dressing once daily until there is no drainage once there is no drainage he may shower. He should avoid driving while taking narcotics. He was to avoid any full bending at the waist or lifting anything heavier than 5 to 7 pounds. Were going to see him in the office in approximately 2 weeks or sooner if he develops any increased drainage fevers or chills or uncontrolled pain.
[2022-02-15] MEDS: LORATADINE 10 MG TAB PO SCH (08:25)
[2022-02-15] MEDS: ROSUVASTATIN CALCIUM 20 MG TAB PO SCH (08:25)
[2022-02-15] MEDS: traMADol HCL 50 MG TABLET PO PRN ×2 (08:25→13:12)
[2022-02-15] MEDS: amLODIPine BESYLATE 5 MG TAB PO SCH (08:26)
[2022-02-15] MEDS: PANTOprazole 40 MG TAB PO SCH (08:26)
[2022-02-15] MEDS: DUTASTERIDE 0.5 MG CAPSULE PO SCH (08:26)
--- NOTE | 2022-02-15 17:24 | Hospitalist Progress Note ---
Date of Service February 15, 2022 Assessment & Plan (1) Neurogenic claudication due to lumbar spinal stenosis: Plan: #1 lumbar decompression with bilateral medial facetectomies and foraminotomies L2-L3, L3-L4, L4-5 and L5-S1. #2 posterior spinal fusion L2-S1. #3 placement posterior segmental instrumentation L2-S1. #4 interbody fusion L4-L5 L5-S1. #5 placement of Spira cage 13 x 26 mm at L4-L5 and 11 x 26 mm at L5-S1. #6 placement locally harvested morselized autograft in the posterior gutters. #7 placement of infuse collagen sponge, master graft in the posterior lateral gutters and I factor interbody space performed by Dr. Whelan No post op complication Continue pain control Incentive spirometry Continue PT/OT eval Fall precaution Hgb 10.6 today Acute blood loss anemia Hgb improved at 10.6 Mostly due to recent ortho procedure stable HTN Resume HCTZ/Benzapril on discharge Continue amlodipine Hx PVD Stable Follow up with outpatient vascular surgeon DVT px as per ortho Code status Full code Admission and Anticipated Discharge Date Admission Date: February 11, 2022 Subjective Pt was seen and examined for postop follow up Lying in bed with no acute distress Denies any chest pain, palpitation, dizziness and SOB Review of Systems Review of Systems: All systems reviewed & are unremarkable except as noted in Subjective Physical Exam Physical Exam: General- No acute distress Head- atraumatic Eyes- PERRL, EOMI, ENT- oropharynx clear Neck- supple, no JVD Lungs- clear to auscultation Heart- regular rhythm; no murmur Abdomen- normal bowel sounds, soft, nontender Extremities- no calf tenderness Neuro- alert, oriented x 3; PERRL, EOMI; no facial palsy; no dysarthria Skin- warm & dry Results & Data Results & Data ([facility]) Vital Signs (Past 12 Hours) Vital Signs Temp Pulse Resp BP Pulse Ox 02/15/22 13:25 36.8 C 80 18 145/71 H 91 02/15/22 07:36 36.8 C 80 18 145/71 H 91
== END 2022-02-15 14:25 | disposition home or self-care (01) | DRG 454 ==
LOC: ASU 10:00 → 3W 18:00